=== PATIENT | male | born 1970 | race Caucasian/White ===

== ENCOUNTER 2021-03-26 00:45 | Emergency (ER) | payer MEDICAID ==
[~2021-03-26] VITALS: Ht 172.7 cm; Wt 68.0 kg
[2021-03-26 00:55] VITALS: BP 134/79
== END 2021-03-26 02:30 | disposition home or self-care (01) ==
LOC: ER 00:47
DX: K91.841 Postprocedural hemorrhage of a digestive system organ or structure following other procedure (principal)